=== PATIENT | male | born 1970 | race Caucasian/White ===

== ENCOUNTER 2020-07-16 00:50 | Outpatient (CLI) | payer OTHER, SELFPAY ==
[2020-07-16 17:41] LABS: SARS-CoV-2 RNA PCR Negative
== END 2020-07-16 00:51 | disposition home or self-care (01) ==
LOC: ANHCOVIDDT 00:50
PROVIDERS: PCP Family Medicine; Visit Provider Otolaryngology
DX: Z01.812 Encounter for preprocedural laboratory examination (principal); Z20.828 Contact with and (suspected) exposure to other viral communicable diseases
CPT/HCPCS: 87635; C9803; U0003

== ENCOUNTER 2020-07-17 00:57 | Day surgery (SDC) | payer OTHER, SELFPAY ==
[2020-07-04 13:35] VITALS: BMI 28.5
--- NOTE | 2020-07-11 08:05 | P.HP_ITS ---
History of Present Illness History of Present Illness Consent: Risks, benefits, and alternatives have been discussed and questions answered. Patient agrees to proceed with procedure. Chief complaint: Nasal Septal Deviation/ Turbinate Hypertrophy Narrative: Donovan Rios is a 50 year old male is having a a septoplasty and bilateral inferior turbinectomy Review of Systems Review of Systems: All systems reviewed & are unremarkable except as noted in HPI and below PMFSH Social History Social History (Updated 06/27/20 @ 07:39 by Gloria Harris, [facility]) Smoking status: Never smoker Second hand tobacco smoke exposure: No Alcohol intake: never Substance use: never Meds Home Medications and Allergies Home Medications Medication Instructions Recorded Confirmed Type sertraline 50 mg tablet 50 mg PO DAILY 05/21/20 07/04/20 History famotidine 10 mg PO BID 07/04/20 07/04/20 History lisinopril 20 mg PO DAILY 07/04/20 07/04/20 History znstilsyfmln-gzf-eybu-FA-vit K 1 tablet PO DAILY 07/04/20 07/04/20 History [Adults Multivitamin] rivaroxaban [Xarelto] 20 mg PO DAILY 07/04/20 07/04/20 History Allergies Allergy/AdvReac Type Severity Reaction Status Date / Time No Known Allergies Allergy Verified 07/04/20 13:30 Assessment and Plan Additional Plan he is having a bilateral inferior turbinectomy and septoplasty
[2020-07-17] VITALS (7 sets, daily range): BP systolic 119–142; BP diastolic 62–82; PULSE 60–82; RESP 12–20; TEMP 36.6–36.8; O2SAT 99–100
--- NOTE | 2020-07-17 06:12 | P.HP_ITS ---
History of Present Illness History of Present Illness Consent: Risks, benefits, and alternatives have been discussed and questions answered. Patient agrees to proceed with procedure. Chief complaint: Nasal Septal Deviation/ Turbinate Hypertrophy Narrative: Donovan Rios is a 50 year old male with nasal obstruction difficulty breathing out of his nose is admitted for nasal septal deviation surgery and turbinate hypertrophy surgery Review of Systems Review of Systems: All systems reviewed & are unremarkable except as noted in HPI and below [facility] Social History Social History (Updated 06/27/20 @ 07:39 by Glroia Harris, [facility]) Smoking status: Never smoker Second hand tobacco smoke exposure: No Alcohol intake: never Substance use: never Living arrangements: with family Meds Home Medications and Allergies Home Medications Medication Instructions Recorded Confirmed Type sertraline 50 mg tablet 50 mg PO DAILY 05/21/20 07/04/20 History famotidine 10 mg PO BID 07/04/20 07/04/20 History lisinopril 20 mg PO DAILY 07/04/20 07/04/20 History qogblwtxkezn-ajd-woog-FA-vit K 1 tablet PO DAILY 07/04/20 07/04/20 History [Adults Multivitamin] rivaroxaban [Xarelto] 20 mg PO DAILY 07/04/20 07/04/20 History Allergies Allergy/AdvReac Type Severity Reaction Status Date / Time No Known Allergies Allergy Verified 07/04/20 13:30 Assessment and Plan Additional Plan The plan is a nasal septoplasty and bilateral inferior turbinectomy
--- NOTE | 2020-07-17 06:13 | WPDHPUPDATE1 ---
History and Physical Update Update Date/Time: 07/17/20 06:13 History and Physical has been reviewed, including an updated exam of the patient. There are NO changes in the patient's condition. Risks, benefits, and alternatives have been discussed and questions answered. Patient agrees to proceed with procedure.
[2020-07-17] MEDS: LACTATED RINGERS 1,000 ML 30 ML IV CONT ×2 (07:55→09:54)
[2020-07-17] MEDS: ACETAMINOPHEN 500 MG TABLET 1000 MG PO (07:56)
--- NOTE | 2020-07-17 08:08 | P.PNAN_ITS ---
Anes - Initial Pre Proc Eval Procedure: Operation Date: 07/17/20 09:00 Proposed Procedures p Septoplasty - Shane Bryant MD s Bilateral Inferior Turbinectomy - Shane Bryant MD Date/Time: 07/17/20 08:08 Surgeon: Shane Bryant MD Pre Op Diagnosis: Nasal Septal Deviation/ Turbinate Hypertrophy Patient Data Age: 50 Gender: M Height: 1.88 m Weight: 112 kg Last Vital Signs Temp 36.8 C 07/17/20 08:05 Pulse 62 07/17/20 08:05 Resp 18 07/17/20 08:05 BP 142/77 H 07/17/20 08:05 Pulse Ox 99 07/17/20 08:05 Allergies Allergy/AdvReac Type Severity Reaction Status Date / Time No Known Allergies Allergy Verified 07/17/20 07:33 Home Medications Medication Instructions Recorded Confirmed Type sertraline 50 mg tablet 50 mg PO DAILY 05/21/20 07/17/20 History famotidine 10 mg PO BID 07/04/20 07/17/20 History lisinopril 20 mg PO DAILY 07/04/20 07/17/20 History yrupnmmkmodj-nhe-wlkp-FA-vit K 1 tablet PO DAILY 07/04/20 07/17/20 History [Adults Multivitamin] rivaroxaban [Xarelto] 20 mg PO DAILY 07/04/20 07/17/20 History Patient hx anesthesia problems: none Family hx anesthesia problems: none PMFSH Past Medical History Medical History (Updated 07/17/20 @ 08:11 by Hilton Balbuena MD) Anxiety Chronic sinusitis Deviated septum HTN (hypertension) Nasal obstruction Obesity Pulmonary embolism Social History Social History (Updated 06/27/20 @ 07:39 by Gloria Harris CMA) Smoking status: Never smoker Second hand tobacco smoke exposure: No Alcohol intake: never Substance use: never Living arrangements: with family Anes - Eval Final PreProcedure Day of Procedure 07/17/20 08:08 Patient weight: obese Heart: regular rate and rhythm Lungs: clear to auscultation and normal air movement Airway: Mallampati scale class II Neurological: alert and oriented Last oral intake: >/= 8 hours ASA classification: III Emergent: no Anesthetic plan: proceed Anesthesia type and monitoring: general ETT Other findings: last xarelto 07/11 Informed Consent: The patient's anesthetic plan and its attendant risks and bene fits were discussed with the patient/family/POA. Questions were solicited and answers provided to the satisfaction of the patient/family/POA.
[2020-07-17] MEDS: COCAINE HCL (*CRX) 4% TOP SOLN 4 ML VIAL 1 APPLIC TOPICAL (09:24)
[2020-07-17] MEDS: LIDO 1%/EPINEPHRINE 1:100,000 20 ML VIAL 3 ML INFILTRATE (09:25)
--- NOTE | 2020-07-17 09:50 | P.OP_ITS ---
Procedure Note - Detailed Date of procedure: 07/17/20 Pre-op diagnosis: Nasal Septal Deviation/ Turbinate Hypertrophy Nasal septal deviation turbinate hypertrophy Post-op diagnosis: same Procedure performed: Patient was prepped and draped fashion anesthesia of cocain e impregnated cottonoids placed in the nose injected with xylocaine with adrenaline a right brock transfix incision was made anterior and posterior tunnels elevated the bony cartilaginous junction the bony deviation was removed this swelling the cartilage and bone bony remnants of the midline the inferior turbinates were reduced in size with needle cautery Turner splints placed in a after the incision was closed with 4 0 chromic in splints sutured in Anesthesia: GLMA Surgeon: Shane Bryant MD Estimated blood loss (mL): 10 Drains: No Packing: Yes Complications: No immediate complications Condition: stable Disposition: PACU Findings: Septal deviation turbinate hypertrophy
== END 2020-07-17 11:18 | disposition home or self-care (01) ==
PROVIDERS: PCP Family Medicine; Visit Provider Otolaryngology
PROC: (CPT 30520; principal; 2020-07-17 09:00)
PROC: (CPT 30130; 2020-07-17 09:00)
DX: J34.2 Deviated nasal septum (principal); J34.3 Hypertrophy of nasal turbinates; I10 Essential (primary) hypertension; F41.9 Anxiety disorder, unspecified; Z86.711 Personal history of pulmonary embolism; E66.9 Obesity, unspecified; Z68.31 Body mass index [BMI] 31.0-31.9, adult
CPT/HCPCS: 30130; 30520; A9270; J0330; J1100; J2250; J2405; J2704; J3010; J7120